=== PATIENT | male | born 1980 | race Caucasian/White ===

== ENCOUNTER 2016-03-10 10:38 | Emergency (ER) | payer SELFPAY ==
[2016-03-10] MEDS ORDERED: HYDROCODONE/APAP 5/325MG TABLET PO ONE (11:49)
--- NOTE | 2016-03-10 12:38 | Emergency Department Record ---
History of Present Illness - General Chief complaint: Lower Extremity Pain Stated complaint: LEFT FOOT INJURY Time Seen by Provider: 03/10/16 11:15 Source: Patient Mode of Arrival: Ambulatory Limitations: No limitations - History of Present Illness Initial comments: pts foot got caught on an assembly line and was twisted and he was drug injuring his ankle,foot and leg. he is unable to bear weight. MD Complaint: Extremity pain, Extremity swelling, Joint pain, Joint swelling Onset/Timin -: Hour(s) Location: Left, Ankle, Foot History of Same: No Radiation: Distal Severity scale (1-10): 8 Quality: Aching Consistency: Constant Improves with: Nothing Worsens with: Weight bearing Associated Symptoms: Denies other symptoms - Related Data Home Medications Medication Instructions Recorded Confirmed Last Taken No Home Med [NO HOME MEDS] 03/10/16 03/10/16 Unknown Allergies Allergy/AdvReac Type Severity Reaction Status Date / Time Penicillins Allergy Severe SWELLING Verified 03/10/16 11:08 (GENERAL) Travel Screening - Travel/Exposure Within Last 30 Days Have you traveled within the last 30 days?: No Review of Systems Reviewed: No additional complaints except as noted below Constitutional: Reports: As per HPI. Denies: Chills, Fever, Malaise, Night sweats, Weakness, Weight change Eyes: Reports: As per HPI. Denies: Eye discharge, Eye pain, Photophobia, Vision change ENT: Reports: As per HPI. Denies: Congestion, Dental pain, Ear pain, Epistaxis , Hearing loss, Throat pain Respiratory: Reports: As per HPI. Denies: Cough, Dyspnea, Hemoptysis, Stridor, Wheezes Cardiovascular: Reports: As per HPI. Denies: Arrhythmia, Chest pain, Dyspnea on exertion, Edema, Murmurs, Orthopnea, Palpitations, Paroxysmal nocturnal dyspnea, Rheumatic Fever, Syncope Endocrine: Reports: As per HPI. Denies: Fatigue, Heat or cold intolerance, Polydipsia, Polyuria Gastrointestinal: Reports: As per HPI. Denies: Abdominal pain, Constipation, Diarrhea, Hematemesis, Hematochezia, Melena, Nausea, Vomiting Genitourinary: Reports: As per HPI. Denies: Dysuria, Frequency, Hematuria, Incontinence, Retention, Testicular pain, Testicular mass, Urgency Musculoskeletal: Reports: As per HPI. Denies: Arthralgia, Back pain, Gout, Joint swelling, Myalgia, Neck pain Skin: Reports: As per HPI. Denies: Bruising, Change in color, Change in hair/ nails, Lesions, Pruritus, Rash Neurological: Reports: As per HPI. Denies: Abnormal gait, Confusion, Headache, Numbness, Paresthesias, Seizure, Tingling, Tremors, Vertigo, Weakness Psychiatric: Reports: As per HPI. Denies: Anxiety, Auditory hallucinations, Depression, Homicidal thoughts, Suicidal thoughts, Visual hallucinations Hematological/Lymphatic: Reports: As per HPI. Denies: Anemia, Blood Clots, Easy bleeding, Easy bruising, Swollen glands Past Medical History - SOCIAL HISTORY Smoking Status: Never smoker Alcohol Use: None Drug Use: None - RESPIRATORY Hx Respiratory Disorders: No - CARDIOVASCULAR Hx Cardio Disorders: No - NEURO Hx Neuro Disorders: No - GI Hx GI Disorders: No - Hx Genitourinary Disorders: No - ENDOCRINE Hx Endocrine Disorders: No - MUSCULOSKELETAL Hx Musculoskeletal Disorders: No - PSYCH Hx Psych Problems: No - HEMATOLOGY/ONCOLOGY Hx Hematology/Oncology Disorders: No Family Medical History Any Significant Family History?: No Physical Exam - General General Appearance: Alert, Oriented x3, Cooperative, Mild distress - Head Head exam: Normal inspection - Eye Eye exam: Normal appearance, PERRL, EOMI Pupils: Normal accommodation - ENT ENT exam: Normal exam, Mucous membranes moist, Normal external ear exam, Normal orophraynx Ear exam: Normal external inspection. negative: External canal tenderness Nasal Exam: Normal inspection. negative: Discharge, Sinus tenderness Mouth exam: Normal external inspection, Tongue normal Teeth exam: Normal inspection. negative: Dental caries Throat exam: Normal inspection. negative: Tonsillar erythema, Tonsillar exudate - Neck Neck exam: Normal inspection, Full ROM. negative: Tenderness - Respiratory Respiratory exam: Normal lung sounds bilaterally. negative: Respiratory distress - Cardiovascular Cardiovascular Exam: Regular rate, Normal rhythm, Normal heart sounds - GI/Abdominal GI/Abdominal exam: Soft, Normal bowel sounds. negative: Tenderness - Rectal Rectal exam: Deferred - exam: Deferred - Extremities Extremities exam: Normal capillary refill, Tenderness. negative: Full ROM Image of Full Body: 1 - swelling, tenderness, abrasions, erythema 2 - abrasions and tenderness - Back Back exam: Reports: Normal inspection, Full ROM. Denies: Muscle spasm, Rash noted, Tenderness - Neurological Neurological exam: Alert, Normal gait, Oriented X3, Reflexes normal - Psychiatric Psychiatric exam: Normal affect, Normal mood - Skin Skin exam: Dry, Intact, Normal color, Warm Course Vital Signs 03/10/16 11:02 Temperature 98.1 F Pulse Rate 77 Respiratory 20 Rate Blood Pressure 117/72 Pulse Ox 99 Medical Decision Making - Management Options MDM Management: Additional Work-up Planned (e.g. ADM/Transfer/OP Study) - Data Complexity MDM Data: X-Ray Ordered and/or Reviewed - Radiology Data Radiology results: Report reviewed, Image reviewed Disposition Disposition: Discharge Clinical Impression: Ankle abrasion Qualifiers: Encounter type: initial encounter Laterality: left Qualified Code(s): S90.512A - Abrasion, left ankle, initial encounter Sprain of Ankle Qualifiers: Encounter type: initial encounter Involved ligament of ankle: unspecified ligament Laterality: left Qualified Code(s): S93.402A - Sprain of unspecified ligament of left ankle, initial encounter Abrasion of Lower Extremity Qualifiers: Encounter type: initial encounter Laterality: left Qualified Code(s): S80.812A - Abrasion, left lower leg, initial encounter Disposition: Home, Self-Care Condition: (1) Good Instructions: Abrasion (ED), Foot Contusion (ED), Ankle Sprain (ED) Additional Instructions: follow up with family doctor. return sooner if worse. follow up with occupational health Forms: Patient Portal Access, Return to Work/School
--- NOTE | 2016-03-15 10:12 | RADIOLOGY REPORT ---
EXAM: LEFT ANKLE COMPLETE HISTORY: LOWER LEG AND FOOT WAS CAUGHT IN MACHINE AT WORK TODAY. LEFT LATERAL LOWER LEG PAIN AND MEDIAL LEFT ANKLE PAIN. TECHNIQUE: Three views of the left ankle were obtained. Comparison: Same day radiographic examinations of the left foot and left lower leg. Encounter: Initial. FINDINGS: There is normal bone mineralization. No acute fracture, dislocation , or destructive bone lesion is seen. The articular relations are maintained. No suspicious soft tissue abnormality identified. IMPRESSION: NO ACUTE BONE OR JOINT ABNORMALITY IDENTIFIED. JOB NUMBER: [id number] MTDD
--- NOTE | 2016-03-15 10:26 | RADIOLOGY REPORT ---
EXAM: LEFT FOOT COMPLETE HISTORY: LATERAL LOWER LEG PAIN AND MEDIAL ANKLE PAIN POST TRAUMA AT WORK. TECHNIQUE: Three views of the left foot were obtained. Comparison: Same day radiographic examination of the left ankle. Encounter: Initial. FINDINGS: There is normal bone mineralization. No acute fracture, dislocation , or destructive bone lesion is seen. The articular relations are maintained. Minor anteromedial soft tissue swelling is noted at the level of the ankle and proximal foot. IMPRESSION: NO ACUTE BONE OR JOINT ABNORMALITY IDENTIFIED. MINOR SOFT TISSUE SWELLING ANTEROMEDIALLY AT THE LEVEL OF THE ANKLE AND PROXIMAL FOOT. JOB NUMBER: [id number] MTDD
--- NOTE | 2016-03-15 10:28 | RADIOLOGY REPORT ---
EXAM: LEFT LOWER LEG, AP AND LATERAL VIEWS HISTORY: PAIN IN LATERAL LOWER LEG AND MEDIAL ANKLE POST TRAUMA. TECHNIQUE: AP and lateral views of the left lower leg were obtained. Comparison: Same day three views of the left ankle. Encounter: Initial. FINDINGS: There is normal bone mineralization. No acute fracture, dislocation , or destructive bone lesion is seen. The articular relations are maintained. No suspicious soft tissue abnormality identified. IMPRESSION: NO ACUTE BONE OR JOINT ABNORMALITY IDENTIFIED. JOB NUMBER: [id number] MTDD
== END 2016-03-10 13:11 | disposition home or self-care (01) ==
LOC: ER 10:38
DX: S93.402A Sprain of unspecified ligament of left ankle, initial encounter (principal); S90.512A Abrasion, left ankle, initial encounter; S80.812A Abrasion, left lower leg, initial encounter; W31.89XA Contact with other specified machinery, initial encounter; Y92.63 Factory as the place of occurrence of the external cause; Y99.0 Civilian activity done for income or pay
CPT/HCPCS: 99283; 99284

== ENCOUNTER 2016-03-14 08:31 | Emergency (ER) | payer SELFPAY ==
--- NOTE | 2016-03-14 08:50 | Emergency Department Record ---
History of Present Illness - General Chief Complaint: Ankle/Foot Injury Stated Complaint: RECHECK FOOT Time Seen by Provider: 03/14/16 08:45 Source: Patient Mode of Arrival: Ambulatory Limitations: No limitations - History of Present Illness Initial Comments: 35 yo male returns to ED for re-evaluation [id number] an injury to the left foot and ankle after the extremity was "caught in a belt at work". Patient's x- rays were all negative on previous examination, but patient reports continued pain to the anterior ankle with attempting to place his boot. Patient has been able to weight bear with a cane, but is here in the ED to request more time of work as the pain symptoms are still present. Patient denies health problems at his baseline. MD Complaint: Ankle injury, Foot injury Onset/Timin -: Days(s) Injury: Ankle: Left, Foot: Left Type of Injury: Blunt, Other Place: Work Severity: Moderate Severity scale (1-10): 6 Improves With: Rest Worsens With: Palpation, Weight bearing Context: Other Associated Symptoms: Able to partially bear weight Treatments Prior to Arrival: Other - Related Data Home Medications Medication Instructions Recorded Confirmed Last Taken No Home Med [NO HOME MEDS] 03/10/16 03/14/16 Unknown Allergies Allergy/AdvReac Type Severity Reaction Status Date / Time Penicillins Allergy Severe SWELLING Verified 03/14/16 08:34 (GENERAL) Travel Screening - Travel/Exposure Within Last 30 Days Have you traveled within the last 30 days?: No - Travel/Exposure Within Last Year Have you traveled outside the [place] in the last year?: No - Additonal Travel Details Have you been exposed to anyone with a communicable illness?: No - Travel Symptoms Symptom Screening: None Review of Systems Constitutional: Denies: Chills, Fever, Malaise, Night sweats Eyes: Denies: Eye discharge, Eye pain ENT: Denies: Congestion, Ear pain, Epistaxis Respiratory: Denies: Cough, Dyspnea Cardiovascular: Denies: Chest pain, Dyspnea on exertion Endocrine: Denies: Fatigue, Heat or cold intolerance Gastrointestinal: Denies: Abdominal pain, Nausea, Vomiting Genitourinary: Denies: Hematuria, Incontinence, Retention Musculoskeletal: Reports: Arthralgia. Denies: Back pain, Gout, Joint swelling Skin: Reports: Bruising (to the medial ankle region). Denies: Change in color, Change in hair/nails Neurological: Reports: Abnormal gait (painful wot ambulate). Denies: Confusion , Headache, Seizure Psychiatric: Denies: Anxiety Hematological/Lymphatic: Denies: Anemia, Blood Clots Past Medical History - SOCIAL HISTORY Smoking Status: Never smoker Alcohol Use: None Drug Use: None - RESPIRATORY Hx Respiratory Disorders: No - CARDIOVASCULAR Hx Cardio Disorders: No - NEURO Hx Neuro Disorders: No - GI Hx GI Disorders: No - Hx Genitourinary Disorders: No - ENDOCRINE Hx Endocrine Disorders: No - MUSCULOSKELETAL Hx Musculoskeletal Disorders: No - PSYCH Hx Psych Problems: No - HEMATOLOGY/ONCOLOGY Hx Hematology/Oncology Disorders: No Family Medical History Any Significant Family History?: No Physical Exam - General General Appearance: Alert, Oriented x3, Cooperative, No acute distress Limitations: No limitations - Head Head exam: Atraumatic, Normocephalic, Normal inspection Head exam detail: negative: Abrasion, Contusion, Iqbal's sign, General tenderness, Hematoma, Laceration - Eye Eye exam: Normal appearance. negative: Conjunctival injection, Periorbital swelling, Periorbital tenderness, Scleral icterus - ENT Ear exam: negative: Auricular hematoma, Auricular trauma Nasal Exam: negative: Active bleeding, Discharge, Dried blood, Foreign body Mouth exam: negative: Drooling, Laceration, Muffled voice, Tongue elevation - Neck Neck exam: Normal inspection. negative: Meningismus, Tenderness - Respiratory Respiratory exam: Normal lung sounds bilaterally. negative: Respiratory distress, Rhonchi, Stridor, Wheezes - Cardiovascular Cardiovascular Exam: Regular rate, Normal rhythm, Normal heart sounds Peripheral Pulses: 3+: Dorsalis Pedis (L) (normal) - GI/Abdominal GI/Abdominal exam: Soft. negative: Rebound, Rigid, Tenderness - Rectal Rectal exam: Deferred - exam: Deferred - Extremities Extremities exam: Full ROM, Tenderness, Other (NO significant STS on examination , mild ecchymosis to the left medial ankle, abrasions over [place] anterior ankle region, strong DPP, tendon function is intact with dorsiflexion and plantar- flexion on examination.). negative: Calf tenderness, Pedal edema - Back Back exam: Denies: CVA tenderness (R), CVA tenderness (L) - Neurological Neurological exam: Alert, Oriented X3 - Psychiatric Psychiatric exam: Normal affect, Normal mood - Skin Skin exam: Normal color. negative: Abrasion Type of lesion: negative: abrasion Course Vital Signs 03/14/16 08:36 Temperature 98.1 F Pulse Rate 88 Respiratory 20 Rate Blood Pressure 129/74 Pulse Ox 98 - Reevaluation(s) Reevaluation #1: 03/14/16 08:50 Radiographs reviewed from 03/10/16, all negative on examination (foot, ankle, lower leg, and knee). Reevaluation #2: 03/14/16 08:57 Patient is requesting more time of work for more thorough healing before returning to work, will administer a work note for 3 more days. Patient appears stable for discharge at this time with continued use of Ibuprofen as needed for pain and inflammation. Disposition Disposition: Discharge Clinical Impression: Ankle contusion Qualifiers: Encounter type: initial encounter Laterality: left Qualified Code(s): S90.02XA - Contusion of left ankle, initial encounter Disposition: Home, Self-Care Condition: (2) Stable Instructions: Contusion in Adults (ED) Additional Instructions: Return to ED if your symptoms worsen or if you have any concerns. Follow-up with employee health in 1-3 day as directed. Forms: Patient Portal Access Time of Disposition: 08:51
== END 2016-03-14 09:03 | disposition home or self-care (01) ==
LOC: ER 08:31
DX: S90.02XA Contusion of left ankle, initial encounter (principal); W31.89XA Contact with other specified machinery, initial encounter; Y92.63 Factory as the place of occurrence of the external cause; Y99.0 Civilian activity done for income or pay
CPT/HCPCS: 99282

== ENCOUNTER 2016-08-25 15:01 | Emergency (ER) | payer OTHER ==
[2016-08-25] MEDS ORDERED: CLINDAMYCIN 150 MG CAP PO ONE (15:17)
--- NOTE | 2016-08-25 15:20 | Emergency Department Record ---
History of Present Illness - General Chief complaint: Dental Stated complaint: DENTAL PAIN Time Seen by Provider: 08/25/16 15:11 Source: Patient Mode of Arrival: Ambulatory Limitations: No limitations - History of Present Illness Initial comments: The patient is here due to L upper dental area pain and swelling for one day. He denies any trauma or any other issues. The patient states he has a long hx of dental issues. MD complaint: Tooth pain Onset/Timin -: Days(s) Location: Tooth # Severity: Severe Severity scale (1-10): 10 Quality: Sharp Consistency: Constant Improves with: None Worsens with: None Context- Dental: Poor dental care Associated Symptoms: Toothache - Related Data Previous Rx's Medication Instructions Recorded Clindamycin HCl [Cleocin HCl] 300 mg PO QID #28 capsule 08/25/16 Allergies Allergy/AdvReac Type Severity Reaction Status Date / Time Penicillins Allergy Severe SWELLING Unverified 07/04/16 15:26 (GENERAL) Travel Screening - Travel/Exposure Within Last 30 Days Have you traveled within the last 30 days?: No - Travel Symptoms Symptom Screening: None Review of Systems Constitutional: Denies: Chills, Fever Eyes: Denies: Eye discharge ENT: Denies: Throat pain Respiratory: Denies: Cough, Dyspnea Past Medical History - SOCIAL HISTORY Smoking Status: Current every day smoker Alcohol Use: None Drug Use: None - RESPIRATORY Hx Respiratory Disorders: No - CARDIOVASCULAR Hx Cardio Disorders: No - NEURO Hx Neuro Disorders: No - GI Hx GI Disorders: No - Hx Genitourinary Disorders: No - ENDOCRINE Hx Endocrine Disorders: No - MUSCULOSKELETAL Hx Musculoskeletal Disorders: No - PSYCH Hx Psych Problems: No - HEMATOLOGY/ONCOLOGY Hx Hematology/Oncology Disorders: No Family Medical History Any Significant Family History?: No Physical Exam - General General Appearance: Alert, Oriented x3, Cooperative, No acute distress - Head Head exam: Atraumatic, Normocephalic, Normal inspection - Eye Eye exam: Normal appearance, PERRL, EOMI - ENT ENT exam: negative: Normal exam (There is very mild swelling over the L maxillary region.) Teeth exam: Dental caries, Dental tenderness # (14. There is swelling at the gum line.). negative: Normal inspection Throat exam: Normal inspection. negative: Tonsillar erythema, Tonsillar exudate - Neck Neck exam: Normal inspection, Full ROM. negative: Lymphadenopathy, Tenderness - Respiratory Respiratory exam: Normal lung sounds bilaterally. negative: Respiratory distress - Cardiovascular Cardiovascular Exam: Regular rate, Normal rhythm, Normal heart sounds Course Vital Signs 08/25/16 15:08 Temperature 98.4 F Pulse Rate 83 Respiratory 20 Rate Blood Pressure 133/88 Pulse Ox 100 - Reevaluation(s) Reevaluation #1: Procedure note: A # 11 blade was used to I and D the dental abscess. A significant amount of purulence was expressed. 08/25/16 15:19 Reevaluation #2: The patient is doing MUCH better at this time. His pain is 95% resolved and he is ready for home. 08/25/16 15:28 Disposition Disposition: Discharge Clinical Impression: Abscess, dental Disposition: Home, Self-Care Condition: (1) Good Instructions: Dental Abscess (ED) Additional Instructions: Continue the Motrin for pain and the Clindamycin as directed. Use warm water rinses to the mouth as much as possible during the day the next 2 days. Please see the dentist KELLY and return to the ER if worse. Prescriptions: Clindamycin HCl [Cleocin HCl] 300 mg PO QID #28 capsule Forms: Patient Portal Access Time of Disposition: 15:30 Quality - Quality Measures Quality Measures: N/A - Blood Pressure Screening View Details: Yes Blood Pressure Classification: Pre-Hypertensive BP Reading Systolic Measurement: 133 Diastolic Measurement: 88 Screening for High Blood Pressure: < Pre-Hypertensive BP, F/U Documented > [ [id number]] Pre-Hypertensive Follow-up Interventions: Follow-up with rescreen every year.
== END 2016-08-25 15:34 | disposition home or self-care (01) ==
LOC: ER 15:01
DX: K04.7 Periapical abscess without sinus (principal)
CPT/HCPCS: 41800; 99284